=== PATIENT | female | born 1990 | race Caucasian/White ===

== ENCOUNTER 2017-09-17 21:07 | Emergency (ER) | payer SELFPAY ==
[~2017-09-17] VITALS: Ht 167.6 cm; Wt 86.1 kg
[~2017-09-17 21:07] MED LIST: ALBU8.5H8 INH; CIPR500T87; OXYC-302; PSEU120T10 PO
[2017-09-17 21:08] VITALS: BP 134/86
[2017-09-17] MEDS ORDERED: PROPARACAINE OPHTH 0.5%, 15ML ONE (21:43)
[2017-09-17] MEDS ORDERED: FLUORESCEIN OPHTHALMIC 1 MG STRIP EACHEYE ONE (22:00)
[2017-09-17] MEDS ORDERED: PROPARACAINE OPHTH 0.5%, 15ML EACHEYE ONE (22:00)
== END 2017-09-17 22:11 | disposition home or self-care (01) ==
LOC: ED 22:02
DX: H10.022 Other mucopurulent conjunctivitis, left eye (principal); F17.200 Nicotine dependence, unspecified, uncomplicated; Z88.5 Allergy status to narcotic agent
CPT/HCPCS: 99283

== ENCOUNTER 2020-02-26 15:12 | Emergency (ER) | payer OTHER ==
[~2020-02-26] VITALS: Ht 170.2 cm; Wt 89.2 kg
[2020-02-26 15:19] VITALS: BP 138/86
--- NOTE | 2020-02-26 16:42 | NUR ---
PT RESTING ON GURNEY. BARAJAS
== END 2020-02-26 17:13 | disposition home or self-care (01) ==
LOC: ED 15:56
DX: G89.11 Acute pain due to trauma (principal); M25.531 Pain in right wrist; M25.532 Pain in left wrist; F17.200 Nicotine dependence, unspecified, uncomplicated
CPT/HCPCS: 99284